=== PATIENT | female | born 1990 | race Caucasian/White ===

== ENCOUNTER 2019-06-13 09:40 | Emergency (ER) | payer BC, SELFPAY ==
[2019-06-13 09:43] VITALS: BP 133/74; PULSE 75; RESP 14; TEMP 36.5; O2SAT 100
--- NOTE | 2019-06-13 10:43 | ED.GENADUL_ITS ---
Discharge Plan Disposition Patient Disposition: HOME Condition: Stable Discharge Details Chief Complaint: Laceration Clinical Impression: Laceration of thumb Primary Care Provider: Terry Matos ED Provider: Lilian Vásquez Home Meds and New Rx's Prescriptions: No Action fluticasone propionate [Flonase Allergy Relief] 9.9 ML spray,suspension 9.9 ml NS RF: 0 ibuprofen 800 MG tablet 800 mg PO Q8H PRN (Reason: Abdominal Pain) 7 Days Qty: 30 RF: 0 venlafaxine [Effexor XR] 75 mg Capsule,Extended Release 24hr 75 mg PO DAILY RF: 0 loratadine 10 mg Tablet 10 mg PO DAILY RF: 0 Discharge Instructions Instructions: Laceration (ED) Additional Instructions: Keep initial dressing in place for the next 24 hours. Then remove and begin to wash gently with soap and water once or twice daily. Apply small amount of antibiotic ointment and dressing to keep covered. Observe for any signs of infection. Suture removal in 10 days. Your fingers will feel slightly numb in the area for approximately 1 to 2 hours this will return to normal then he may experience mild burning. You may use Tylenol for soreness if needed. Return to the emergency room for any signs of infection, worsening, concerns or alarming symptoms sooner if needed Medical Decision Making 29-year-old patient presenting to the emergency room for complaints of laceration to the right thumb fat pad. Injury occurred prior to arrival. Patient sustained laceration while she was trying to separate 2 pieces of glass. Patient reports that she has no concern of retained foreign body. Patient denies any other injuries. Tetanus up-to-date in 2013. On exam patient has a V-shaped flap-like laceration approximately 1.5 cm on the right fat pad. No limitation to range of motion. Nothing to indicate ligamentous or deep space involvement. No bony pain. Distal neurovascularly intact. Bleeding controlled. After area cleaned, lidocaine locally, wound irrigated and explored. No evidence of retained glass. Three 4-0 sutures placed for wound approximation. Patient did have a vasovagal response during her procedure however she never lost consciousness, remained in the bed and speaking throughout, experienced mild nausea which was extremely transient and improved. Patient otherwise tolerated procedure without difficulty. Wound management discussed. Wound care discussed. Suture removal discussed. Signs of infection discussed. The patient was stable and requested discharge. Prior to discharge, my usual and customary return precautions were reviewed with the patient - this included follow-up instructions and reasons to return to the Emergency Department if conditions worsens, does not improve as expected, or other new concerns arise. HPI General Date/Time Provider Initiated Documentation: 06/13/19 09:50 . HPI Narrative: This is a 29-year-old patient who lacerated her right thumb on a piece of glass prior to arrival. Patient denies numbness, tingling or weakness. No concern of foreign body sensation or concern of retained foreign body. Patient was trying to separate 2 pieces of glass and accidentally lacerated her right thumb fat pad. Patient denies any other sites of pain or concerns. Tetanus is up-to-date in 2013. Patient denies any pain with range of motion. No concern for fracture. No other concerns or complaints at this time. Injury occurred prior to arrival. Related Data Home Medications Medication Instructions Recorded Confirmed fluticasone propionate [Flonase 9.9 ml NS 04/23/16 06/30/18 Allergy Relief] ibuprofen 800 mg PO Q8H PRN 7 Days #30 tab 11/30/16 06/13/19 loratadine 10 mg PO DAILY 06/13/19 06/13/19 venlafaxine [Effexor XR] 75 mg PO DAILY 06/13/19 06/13/19 Previous Rx's Medication Instructions Recorded ibuprofen 800 mg PO Q8H PRN 7 Days #30 tab 11/30/16 Allergies Allergy/AdvReac Type Severity Reaction Status Date / Time amoxicillin Allergy Severe Hives Unverified 06/13/19 09:56 General Stated Complaint: Laceration FOZIA: 4 Review of Systems All systems reviewed & are unremarkable except as noted in HPI and below Musculoskeletal Musculoskeletal: Denies deformity, Denies arthralgias, Denies joint swelling, Denies limited range of motion, Denies numbness and Denies tingling Integumentary/Breasts Skin/Breast: Reports wounds Neurologic Neurologic: Denies numbness, Denies tingling and Denies paresthesias [facility] Medical History Chronic low back pain Depression with anxiety Irritable colon Migraines Recurrent HSV (herpes simplex virus) Surgical History (Updated 12/02/17 @ 14:37 by [employer] [place]) section (11/27/16) wisdsom teeth extractions Family History Mother No problems noted. Father No problems noted. Sister No problems noted. Brother Diabetes Type II on meds, Is Obese Son No problems noted. 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 Children: Brien, 2 years old, Hadley, 1year-old, Florencia 8 years old-stepdaughter Female Reproductive History Menstrual control method: permanent sterilization (vasectomy) History History 2 Para Hx # Term Pregnancies 2 Multiple births Hx # Pregnancies Ectopic pregnancies AB induced Hx Number of Living Children AB spontaneous Exam Narrative Exam Narrative: CONST: Healthy appearing patient, in no acute distress. Well hydrated. Alert and oriented. MUSCULOSKELETAL: Normal Gait. Full range of motion of left thumb. Flexion extension intact. Nothing to indicate ligamentous or tendon injury. No bony pain with palpation. No palpable tenderness. A small V-shaped laceration approximately 1.5 cm noted over the right fat pad. No joint involvement. Distal neurovascularly intact. SKIN: Normal. Dry. No rashes. A small V-shaped laceration approximately 1.5 cm noted over the right fat pad. No joint involvement. NEURO: Alert and awake. Speech clear. PSYCH: Normal affect. Cooperative. Course Vital Signs Vital signs: Vital Signs Temperature 36.5 C 06/13/19 09:43 Pulse 75 06/13/19 09:43 Respiratory Rate 14 06/13/19 09:43 Blood Pressure 133/74 06/13/19 09:43 Pulse Oximetry 100 06/13/19 09:43 Temperature 36.5 C 06/13/19 09:43 Temperature Source Skin 06/13/19 09:43 Pulse 75 06/13/19 09:43 Respiratory Rate 14 06/13/19 09:43 Respiratory Effort Non-Labored 06/13/19 09:58 Blood Pressure 133/74 06/13/19 09:43 Blood Pressure Position Sitting 06/13/19 09:43 Pulse Oximetry 100 06/13/19 09:43 Oxygen Delivery Method Room Air 06/13/19 09:43 Oxygen Flow Rate 0 06/13/19 09:43 Pain Level 0 06/13/19 10:01 Procedures Laceration Laceration 1: Site: hand (Right thumb) Side (If applicable): right Size (cm): 1.5 Description: flap Depth: simple, single layer Local Anesthetic: Lidocaine 1% Amount of anesthesia used (mL): 1 Pre-repair: wound explored Skin layer closed with: other (prolene) Size (cm): 4-0 Number of sutures: 3 Technique: simple, interrupted
[2019-06-13 11:14] VITALS: BP 123/80; PULSE 72; RESP 17; TEMP 36.9; O2SAT 99
== END 2019-06-13 11:02 | disposition home or self-care (01) ==
PROVIDERS: Emergency Provider Physician Assistant; PCP Family Medicine
DX: S61.011A Laceration without foreign body of right thumb without damage to nail, initial encounter (principal); W25.XXXA Contact with sharp glass, initial encounter
CPT/HCPCS: 12001

== ENCOUNTER 2019-10-28 13:42 | Outpatient (REF) | payer BC, SELFPAY ==
--- NOTE | 2019-10-28 12:00 | PAPFT_PTH ---
PATIENT: Yoana Castellanos LOC: [facility]#:[id number] AGE/SX: 29/F ROOM: RE10/28/[address]: Terry Matos : 1990 BED: DIS: 10/28/2019 SPEC #: [id number] RECD: 10/31/19 12:53 STATUS: DIANA REQ #: [id number] GISEL: 10/28/19 12:[address]: Terry Matos DEPT: [facility] Cytology RECD BY: Alexia Evans Tissues: 1 - CX/ENDOCX FOR PAP SMEARS Procedures: PAP THIN PREP/UVM Screening Comments: [id number]
== END 2019-10-28 14:02 ==
LOC: NCHCN 13:42
PROVIDERS: PCP Family Medicine; Visit Provider Family Medicine
DX: Z12.4 Encounter for screening for malignant neoplasm of cervix (principal)
CPT/HCPCS: 88142

== ENCOUNTER 2021-06-14 01:47 | Outpatient (CLI) | payer BC, SELFPAY ==
[2021-06-14 13:03] LABS: CREATININE 0.8 mg/dL (0.55-1.02); Potassium 4.4 mmol/L (3.5-5.1)
== END 2021-06-14 01:48 | disposition home or self-care (01) ==
LOC: LBO 01:47
PROVIDERS: PCP Family Medicine; Visit Provider Physician Assistant
DX: L73.2 Hidradenitis suppurativa (principal)
CPT/HCPCS: 36415; 82565; 84132

== ENCOUNTER 2021-08-27 02:46 | Outpatient (CLI) | payer BC, SELFPAY ==
[2021-09-02 08:28] LABS: CLASS 0; Venom Bumble Bee IgE <0.10 kU/L (<0.35)
[2021-09-04 11:32] LABS: Misc Referral (MAYO) See Comments
== END 2021-08-27 02:47 | disposition home or self-care (01) ==
PROVIDERS: PCP Family Medicine; Visit Provider Physician Assistant
DX: T63.461A Toxic effect of venom of wasps, accidental (unintentional), initial encounter (principal); R06.2 Wheezing; R21 Rash and other nonspecific skin eruption
CPT/HCPCS: 36415; 86003

== ENCOUNTER 2021-11-12 03:18 | Outpatient (CLI) | payer BC, SELFPAY ==
[2021-11-14 17:47] LABS: Testosterone, Total 18 ng/dL (8-60)
== END 2021-11-12 03:19 | disposition home or self-care (01) ==
LOC: LBO 03:18
PROVIDERS: PCP Family Medicine; Visit Provider Nurse Practitioner Women's Health
DX: N92.6 Irregular menstruation, unspecified (principal)
CPT/HCPCS: 36415; 84403; 83001; 84443

== ENCOUNTER 2022-07-11 01:48 | Outpatient (CLI) | payer BC, SELFPAY ==
--- OUTSIDE RECORDS SUMMARY | 2022-07-11 01:51 | XMS_ITS | Continuity of Care Document ---
Author Name Unknown Organization [facility] Address [address] [place] [address] Encounter [facility]_[place] Date(s): 11/20/21 - 11/20/[address] [address] Discharge Disposition: Home or Self Care Attending Physician: Spring Godoy Admitting Physician: Spring Godoy Assessment and Plan Diagnostic Tests Pending * Urine Culture 11/20/21 Social History Social History Type Response Sex Female
[2022-07-11 13:33] LABS: CREATININE 0.8 mg/dL (0.55-1.02); Estimated GFR 100.33 (mL/min/1.73m2); Potassium 3.9 mmol/L (3.5-5.1)
== END 2022-07-11 01:49 | disposition home or self-care (01) ==
PROVIDERS: PCP Family Medicine; Visit Provider Physician Assistant
DX: L70.8 Other acne (principal); Z79.899 Other long term (current) drug therapy
CPT/HCPCS: 36415; 82565; 84132

== ENCOUNTER 2022-12-19 01:48 | Outpatient (CLI) | payer BC, SELFPAY ==
[2022-12-19 08:23] LABS: Abs Immature Grans 0.02 10^3/uL (0.0-0.06); Absolute Basophil Count 0.06 10^3/uL (0.0-0.2); Absolute Eosinophil Count 0.12 10^3/uL (0.0-0.7); Absolute Lymphocyte Count 3.32 10^3/uL (1.2-3.4); Absolute Monocyte Count 0.63 10^3/uL (0.1-0.8); Absolute Neutrophil Count 5.68 10^3/uL (1.2-6.7); Basophils % 0.6; Eosinophils % 1.2; HCT 43.4 % (36.0-46.0); HGB 14.7 g/dL (11.2-15.7); Immature Grans % 0.2; Lymphocytes % 33.8; MCH 30.7 pg (27.0-33.0); MCHC 33.9 % (32.0-36.0); MCV 91 fL (80-95); MPV 9.3 fL (8.0-11.0); Monocytes % 6.4; Neutrophils % 57.8; Platelet Count 286 10^3/uL (130-400); RBC 4.79 10^6/uL (3.93-5.22); RDW 11.7 % (11.7-14.6); RDW-SD 39.3 fL; WBC 9.83 10^3/uL (4.4-10.8)
[2022-12-19 08:45] LABS: ALT 27 U/L (14-59); AST 19 U/L (15-37); Albumin 4.2 g/dL (3.4-5.0); Alkaline Phosphatase 75 U/L (46-116); Anion Gap 12.6 mmol/L (3-11); BUN 12 mg/dL (7-18); Bilirubin, Total 0.5 mg/dL (0.2-1.0); CO2 23.4 mmol/L (21.0-32.0); CREATININE 0.9 mg/dL (0.55-1.02); Calcium 9.4 mg/dL (8.5-10.1); Calculated LDL 149 mg/dL (<100); Chloride 104 mmol/L (98-107); Cholesterol 219 mg/dL (<200); Estimated GFR 87.11 (mL/min/1.73m2); Glucose 109 mg/dL (74-106); HDL Cholesterol 55 mg/dL (40-60); Potassium 3.7 mmol/L (3.5-5.1); Sodium 140 mmol/L (136-145); Total Protein 8.3 g/dL (6.4-8.2); Triglyceride 75 mg/dL (<150)
[2022-12-22 12:29] LABS: IgA 178 mg/dL (85-499); Interpretation (See Note); Tissue Transglutaminase IgA <1.2 U/mL (<4.0)
== END 2022-12-19 01:49 | disposition home or self-care (01) ==
PROVIDERS: PCP Family Medicine; Visit Provider Family Medicine
DX: R11.2 Nausea with vomiting, unspecified (principal); R19.7 Diarrhea, unspecified; Z00.00 Encounter for general adult medical examination without abnormal findings
CPT/HCPCS: 36415; 80053; 80061; 82533; 82784; 83516; 85025

== ENCOUNTER 2023-05-29 09:08 | Outpatient (REF) | payer OTHER, SELFPAY ==
--- NOTE | 2023-05-29 08:45 | PAPFT_PTH ---
PATIENT: Yoana Castellanos LOC: [facility] U#:[id number] AGE/SX: 33/F ROOM: RE05/29/[address]: Loren Stephenson DO : 1990 BED: DIS: 05/29/2023 SPEC #: [id number] RECD: 05/29/23 12:55 STATUS: DIANA REQ #: [id number] GISEL: 05/29/23 08:[address]: Loren Stephenson DEPT: [facility] Cytology RECD BY: Alexia Evans ENTERED: 05/29/23 12:55 SP TYPE: PAPFT OTHR DR: Terry Matos Tissues: 1 - CX/ENDOCX FOR PAP SMEARS Procedures: PAP THIN PREP/UVM Screening HPV DNA PROBE Comments: [id number]
== END 2023-05-29 09:09 | disposition home or self-care (01) ==
LOC: LBN 09:08
PROVIDERS: PCP Family Medicine; Visit Provider Obstetrics & Gynecology
DX: Z12.4 Encounter for screening for malignant neoplasm of cervix (principal); Z11.51 Encounter for screening for human papillomavirus (HPV)
CPT/HCPCS: 88142; 87624

== ENCOUNTER 2023-07-14 17:00 | Outpatient (REF) | payer OTHER, SELFPAY ==
[2023-07-14 16:39] LABS: ALT 32 U/L (14-59); AST 20 U/L (15-37); Albumin 4.5 g/dL (3.4-5.0); Alkaline Phosphatase 83 U/L (46-116); Anion Gap 7.3 mmol/L (3-11); BUN 10 mg/dL (7-18); Bilirubin, Total 0.4 mg/dL (0.2-1.0); CO2 28.7 mmol/L (21.0-32.0); CREATININE 0.8 mg/dL (0.55-1.02); Calcium 9.6 mg/dL (8.5-10.1); Chloride 102 mmol/L (98-107); Estimated GFR 99.71 (mL/min/1.73m2); Glucose 97 mg/dL (74-106); Potassium 3.8 mmol/L (3.5-5.1); Sodium 138 mmol/L (136-145); TSH 1.21 uIU/Ml (0.36-3.74); Total Protein 8.2 g/dL (6.4-8.2)
== END 2023-07-14 17:01 | disposition home or self-care (01) ==
LOC: NCHCN 17:00
PROVIDERS: PCP Family Medicine; Visit Provider Nurse Practitioner Psychiatric/Mental Health
DX: F39 Unspecified mood [affective] disorder (principal)
CPT/HCPCS: 80053; 84443

== ENCOUNTER 2024-06-24 09:38 | Outpatient (REF) | payer OTHER, SELFPAY ==
[2024-06-24 16:37] LABS: Anion Gap 8.9 mmol/L (3-11); BUN 15 mg/dL (7-18); CO2 26.1 mmol/L (21.0-32.0); CREATININE 0.8 mg/dL (0.55-1.02); Calcium 9.9 mg/dL (8.5-10.1); Chloride 102 mmol/L (98-107); Estimated GFR 99.09 (mL/min/1.73m2); Glucose 101 mg/dL (74-106); Potassium 4.4 mmol/L (3.5-5.1); Sodium 137 mmol/L (136-145)
== END 2024-06-24 09:39 | disposition home or self-care (01) ==
LOC: NCHCN 09:38
PROVIDERS: PCP Family Medicine; Visit Provider Student in an Organized Health Care Education/Training Program
DX: L73.2 Hidradenitis suppurativa (principal)
CPT/HCPCS: 80048

== ENCOUNTER 2025-01-14 13:02 | Emergency (ER) | payer OTHER, SELFPAY ==
[2025-01-14 13:09] VITALS: BP 158/112; PULSE 90; RESP 16; TEMP 36.9; O2SAT 100
--- NOTE | 2025-01-14 13:15 | DI.CT_ITS ---
Exam(s) CT HEAD WO EXAM: CT HEAD WO CLINICAL HISTORY: Headache. TECHNIQUE: Imaging Protocol: Axial computed tomography images with coronal and sagittal reformatted images were created and reviewed COMPARISON: No exams were available for comparison FINDINGS: Ventricles and Extra axial spaces: Normal in size and morphology for the patient's age. Hemorrhage: None. Cerebral parenchyma: Normal. Midline shift: None. Brainstem/Cerebellum: Normal. Calvarium: Normal. Visualized Paranasal sinuses/Mastoids: There is marked mucosal thickening of the sphenoid sinuses bilaterally. Soft Tissues: Unremarkable. IMPRESSION: 1. No acute intracranial process. 2. Bilateral sphenoid sinusitis. 3. The preliminary [facility] report was reviewed. RADIATION DOSE DELIVERED: 792.86mGy.cm Total DLP DATA REPOSITORY: All CT scans at this facility are submitted to the National Radiology Data Registry (NRDR) Dose Index Registry (DIR) with the [employer] (ACR). RADIATION OPTIMIZATION: All CT scans at this facility use at least one of these dose optimization techniques: automated exposure control; mA and/or kV adjustment per patient size (includes targeted exams where dose is matched to clinical indication); or iterative reconstruction.
--- NOTE | 2025-01-14 13:26 | ED.GENADUL_ITS ---
Discharge Plan Disposition Patient Disposition: Home Condition: Stable Discharge Details Clinical Impression: Sinusitis, Headache Primary Care Provider: Terry Matos ED Provider: Di Moreira Home Meds and New Rx's Prescriptions: New doxycycline hyclate 100 mg tablet 100 mg PO BID 10 Days Qty: 20 0RF Rx Instructions: Please take 1 tablet by mouth twice daily for the next 10 days fluticasone propionate 50 mcg/actuation spray,suspension 2 spray intranasal DAILY 7 Days Qty: 16 0RF Rx Instructions: administer into each nostril once daily ondansetron 4 mg tablet,disintegrating 4 mg PO Q8H PRN (Reason: nausea and vomiting) 4 Days Qty: 9 0RF Rx Instructions: Take 1 tablet up to 3 times daily as needed for nausea and vomiting 20 minutes prior to meals. No Action spironolactone 100 mg tablet 150 mg PO DAILY venlafaxine 150 mg capsule,extended release 24hr 150 mg PO DAILY fluticasone propionate [Flonase Allergy Relief] 9.9 ML spray,suspension 9.9 ml NS DAILY ibuprofen 800 MG tablet 800 mg PO Q8H PRN (Reason: Abdominal Pain) 7 Days Qty: 30 0RF Rx Instructions: 1 tab po q8 hours prn pain loratadine 10 mg Tablet 10 mg PO DAILY venlafaxine 37.5 mg capsule,extended release 24hr 37.5 mg PO DAILY Patient Comments: TAKE ONE CAPSULE BY MOUTH EVERY DAY WITH 1 CAPSULE OF THE 150MG Discharge Instructions Instructions: Headache, Adult ED, Sinusitis, Adult ED Additional Instructions: At this time the CT of your brain is within normal limits, however you do have some sinusitis noted which could attribute to some of your symptoms. I am going to place you on an antibiotic which you will take twice daily for the next 10 days. Please take it with yogurt or a probiotic. Please also take Flonase or similar nasal spray as directed 1 or 2 sprays once daily for the next 7 days. Please take Tylenol or Ibuprofen with food every 4-6 hours as needed for pain and swelling. Increase oral fluids. Please take the nausea medication as needed. Follow up with primary care provider in 3-5 days. Return to ED sooner if any worsening or concerns. Stand Alone Forms: Portal Information Referrals: Terry Matos [Primary Care Provider, Medicine] - 1 week Clinical Impression: Sinusitis Discharge Data Discharge Date/Time-TO BE ENTERED AT DEPARTURE: 01/14/25 15:27 HPI General Mode of arrival: ambulatory . Date/Time Provider Initiated Documentation: 01/14/25 13:05 . Limitations to Documentation: no limitations . Information obtained by: patient, RN notes reviewed and old records reviewed . HPI Narrative: 34-year-old female presents to the ER with a chief complaint of frontal headache since Thursday, she reports chills and some nausea vomiting associated with this. She is sensitive to light and sound, she does not have a significant headache history of migraine headaches she had 1 headache during . She was seen in urgent care and referred here for further evaluation and management. She did not take any medications today. Previous to today she has been taking Tylenol ibuprofen and naproxen. No significant head injuries reported. She is slightly hypertensive upon arrival. No focal neurodeficits. She does not appear meningeal, Related Data Home Medications ?Medication ?Instructions ?Recorded ?Confirmed fluticasone propionate 50 9.9 ml NS DAILY 04/23/16 mcg/actuation nasal spray,suspension (Flonase Allergy Relief) ibuprofen 800 mg tablet 800 mg PO Q8H PRN Abdominal Pain 7 11/30/16 01/14/25 days #30 tabs loratadine 10 mg tablet 10 mg PO DAILY 06/13/1912/18 spironolactone 100 mg tablet 150 mg PO DAILY 06/06/24 01/14/25 venlafaxine 150 mg 150 mg PO DAILY 06/06/24 capsule,extended release 24 hr doxycycline hyclate 100 mg tablet 100 mg PO BID Sinusi tis 10 days 01/14/25 #20 tabs fluticasone propionate 50 2 spray intranasal DAILY umesh al 01/14/25 mcg/actuation nasal congestion 7 days #16 grams spray,suspension ondansetron 4 mg disintegrating 4 mg PO Q8H PRN nausea and 01/14/25 tablet vomiting 4 days #9 tabs venlafaxine 37.5 mg 37.5 mg PO DAILY 01/14/25 capsule,extended release 24 hr Previous Rx's ?Medication ?Instructions ?Recorded ibuprofen 800 mg tablet 800 mg PO Q8H PRN Abdominal Pain 7 11/30/16 days #30 tabs doxycycline hyclate 100 mg tablet 100 mg PO BID Sinusi tis 10 days 01/14/25 #20 tabs fluticasone propionate 50 2 spray intranasal DAILY umesh al 01/14/25 mcg/actuation nasal congestion 7 days #16 grams spray,suspension ondansetron 4 mg disintegrating 4 mg PO Q8H PRN nausea and 01/14/25 tablet vomiting 4 days #9 tabs Allergies Allergy/AdvReac Type Severity Reaction Status Date / Time amoxicillin Allergy Severe Hives Verified 01/14/25 13:12 General Stated Complaint: Headache FOZIA: 3 Review of Systems All systems reviewed & are unremarkable except as noted in HPI and below Constitutional Constitutional: Reports as per HPI and Reports headache(s) ENT Ears, Nose, Mouth, and Throat: Reports headache(s) Gastrointestinal Gastrointestinal: Reports nausea and Reports vomiting Neurologic Neurologic: Reports headache(s) Exam Narrative Exam Narrative: Constitutional: Alert and oriented x3. Appears stated age. Normal body habitus. Head: Normocephalic, no trauma. Eyes: Pupils PERRL, Red reflex noted, EOM's intact. Eyelids symmetrical without lesions, discharge, or swelling. ENT: Bilateral TM's WNL, External ear normal to inspection, no mastoid TTP, swelling, or erythema, Nasal turbinates WNL, no nasal discharge. Normal dentition, Posterior pharynx WNL, no exudate. Chest: RRR, Normal S1, S2, distal pulses intact. Resp: Lungs clear to auscultation bilaterally, no wheezes, rales, or rhonchi. Abdomen: Soft, non-distended, Normoactive bowel sounds all 4 quads. Musculoskeletal: Normal gait, Moves all 4 extremities without difficulty. Skin: No suspicious rashes or lesions. Capillary refill less than 2 sec. Neurologic: Cranial nerves II-XII intact. Alert and oriented x 3. Motor: No deficits noted. Sensory: Intact bilaterally all 4 extremities. Hematologic/Lymphatic: No ecchymosis, no lymphadenopathy. Course Vital Signs Vital signs: Vital Signs Temperature 36.9 C 01/14/25 13:09 Pulse 90 01/14/25 13:09 Respiratory Rate 16 01/14/25 13:09 Blood Pressure 158/112 H 01/14/25 13:09 Pulse Oximetry 100 01/14/25 13:09 Temperature 36.9 C 01/14/25 13:09 Temperature Source Oral 01/14/25 13:09 Pulse 90 01/14/25 13:09 Respiratory Rate 16 01/14/25 13:09 Blood Pressure 158/112 H 01/14/25 13:09 Blood Pressure Position Sitting 01/14/25 13:09 Pulse Oximetry 100 01/14/25 13:09 Oxygen Delivery Method Room Air 01/14/25 13:09 Oxygen Flow Rate 0 01/14/25 13:09 Medical Decision Making 34-year-old female presents to the ER with a chief complaint of frontal headache since Thursday, she reports chills and some nausea vomiting associated with this. She is sensitive to light and sound, she does not have a significant headache history of migraine headaches she had 1 headache during . She was seen in urgent care and referred here for further evaluation and management. She did not take any medications today. Previous to today she has been taking Tylenol ibuprofen and naproxen. No significant head injuries reported. She is slightly hypertensive upon arrival. No focal neurodeficits. Will draw some labs, urine urinalysis, head CT IV normal saline Zofran Benadryl and Compazine. 1450: On patient reevaluation she reports feeling slightly better, 15 mg Toradol IV ordered. CT shows no acute intracranial abnormalities she does however have some sinusitis which could be attributing to her symptoms. Patient given doxycycline for the sinusitis instructed to use Flonase. Instructed to increase oral fluids at home. Patient discharged with follow-up with her PCP. This text was generated using [employer] dictation system, please disregard any oddities of phrase or misspellings. Imaging Data Radiologic Study: Imaging: CT Scan Radiologist's impression: FINDINGS: Brain: No hemorrhage. Unremarkable white matter. No mass effect. Cerebral ventricles: No ventriculomegaly. Paranasal sinuses: Bilateral dnsez-lmrbcge-yjic-left sphenoid sinus mucosal thickening. No fluid levels. Mastoid air cells: Visualized mastoid air cells are well aerated. Bones: Unr emarkable. No acute fracture. Soft tissues: Unremarkable. IMPRESSION: 1. No acute intracranial findings. 2. Bilateral sphenoid sinus disease. Thank you for allowing us to participate in the care of your patient. Dictated and Authenticated by: Franck Lemus MD Lab Data Lab results reviewed: Yes I reviewed the patient's lab results. Lab results narrative: Laboratory Tests Range/Units 01/14/25 01/14/25 01/14/25 13:30 13:45 14:10 WBC (4.4-10.8) 10^3/uL 12.20 H RBC (3.93-5.22) 10^6/uL 4.95 Hgb (11.2-15.7) g/dL 15.7 Hct (36.0-46.0) % 46.0 MCV (80-95) fL 93 MCH (27.0-33.0) pg 31.7 MCHC (32.0-36.0) % 34.1 RDW (11.7-14.6) % 12.5 Plt Count (130-400) 10^3/uL 291 MPV (8.0-11.0) fL 9.8 Immature Gran % % 0.2 Neutrophils % % 57.2 Lymphocytes % % 35.2 Monocytes % % 6.7 Eosinophils % % 0.0 Basophils % % 0.7 Nucleated RBC % (0.0-0.3) % 0.0 Absolute Neutrophils (1.2-6.7) 10^3/uL 6.98 H Absolute Lymphocytes (1.2-3.4) 10^3/uL 4.29 H Absolute Monocytes (0.1-0.8) 10^3/uL 0.82 H Absolute Eosinophils (0.0-0.7) 10^3/uL 0.00 Absolute Basophils (0.0-0.2) 10^3/uL 0.09 Sodium Cancelled 143 Potassium Cancelled 3.6 Chloride Cancelled 113 H Carbon Dioxide Cancelled 22.4 Anion Gap Cancelled 7.6 BUN Cancelled 14 Creatinine Cancelled 0.73 Est GFR (CKD-EPI 2020) Cancelled 90.91 Glucose Cancelled 99 Calcium Cancelled 8.4 Total Bilirubin Cancelled 0.50 AST Cancelled 26 ALT Cancelled 25 Alkaline Phosphatase Cancelled 53 Total Protein Cancelled 7.3 Albumin Cancelled 4.1 Urine Color (Yellow) Yellow Urine Clarity (Clear) Clear Urine pH (5-8) 5.5 Ur Specific [place] (1.005-1.025) >= 1.030 H Urine Protein (Neg-Trace) mg/dL 30 H Urine Ketones (Negative) mg/dL Negative Urine Blood (Negative) Moderate H Urine Nitrite (Negative) Negative Urine Bilirubin (Negative) Small H Urine Urobilinogen (Up to 0.2) mg/dL 0.2 Ur Leukocyte Esterase (Negative) Negative Urine RBC (0-2) HPF 5-10 H Urine WBC (0-5) HPF 0-2 Ur Epithelial Cells (Negative) HPF Moderate Urine Crystals (Negative) HPF Negative Urine Bacteria (Negative) HPF Few Urine Casts (Negative) LPF 0-2 Hyaline Urine Mucus (Negative) Moderate Ur Culture Indicated? No Urine Glucose (Negative) mg/dL Negative PFSH All Active Problems (Updated 01/14/25 @ 15:11 by Di Moreira NP) Headache (Acute) Sinusitis (Acute) Routine gynecological examination (Acute) Environmental allergies (Acute) ASCUS (atypical squamous cells of undetermined significance) on Pap smear (Chronic) Inguinal nodule (Acute ~06/2018) 1 x 1.5 cm-expectant management recommended Medical History Allergic reaction to wasp sting Irritable colon Migraines Chronic low back pain Recurrent HSV (herpes simplex virus) Depression with anxiety Surgical History wisdsom teeth extractions section (11/27/16) Family History Mother No problems noted. Father No problems noted. Sister No problems noted. Brother Diabetes Type II on meds, Is Obese Son No problems noted. 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 Children: Brien, 2 years old, Hadley, 1year-old, Florencia 8 years old-stepdaughter Female Reproductive History Menstrual control method: permanent sterilization (vasectomy) History History 2 Para Hx # Term Pregnancies 2 Multiple births Hx # Pregnancies Ectopic pregnancies AB induced Hx Number of Living Children AB spontaneous
[2025-01-14] MEDS: Ondansetron 4 MG/2 ML VIAL IVP (13:44)
[2025-01-14 13:45] LABS: Glucose Negative (Negative)
[2025-01-14] MEDS: diphenhydrAMINE 50 MG/ML VIAL 25 MG IVP (13:45)
[2025-01-14] MEDS: Prochlorperazine 10 MG/2 ML VIAL 5 MG IVP (13:45)
[2025-01-14] MEDS: Normal Saline 1,000 ML 1000 ML IV (13:50)
[2025-01-14 13:55] LABS: C & S Indicated? No; WBC 0-2 HPF (0-5)
[2025-01-14 13:58] LABS: Abs Immature Grans 0.03 10^3/uL (0.0-0.06); HCT 46.0 % (36.0-46.0); HGB 15.7 g/dL (11.2-15.7); Immature Grans % 0.2 %; MCH 31.7 pg (27.0-33.0); MCHC 34.1 % (32.0-36.0); MCV 93 fL (80-95); MPV 9.8 fL (8.0-11.0); Platelet Count 291 10^3/uL (130-400); RBC 4.95 10^6/uL (3.93-5.22); RDW 12.5 % (11.7-14.6); RDW-SD 42.7 fL; WBC 12.20 10^3/uL (4.4-10.8)
[2025-01-14 14:38] LABS: ALT 25 U/L (10-49); AST 26 U/L (<34); Albumin 4.1 g/dL (3.2-5.0); Alkaline Phosphatase 53 U/L (46-116); Anion Gap 7.6 mmol/L (3-11); BUN 14 mg/dL (9-23); Bilirubin, Total 0.50 mg/dL (0.2-1.2); CO2 22.4 mmol/L (20.0-31.0); Calcium 8.4 mg/dL (8.3-10.6); Chloride 113 mmol/L (98-107); Glucose 99 mg/dL (74-106); Potassium 3.6 mmol/L (3.5-5.1); Sodium 143 mmol/L (136-145); Total Protein 7.3 g/dL (5.7-8.2)
--- NOTE | 2025-01-14 14:48 | DI.VRAD_ITS ---
PROCEDURE INFORMATION: Exam: CT Head Without Contrast Exam date and time: 01/14/2025 2:30 PM Age: 34 years old Clinical indication: Other: Headache TECHNIQUE: Imaging protocol: Computed tomography of the head without contrast. COMPARISON: No relevant prior studies available. FINDINGS: Brain: No hemorrhage. Unremarkable white matter. No mass effect. Cerebral ventricles: No ventriculomegaly. Paranasal sinuses: Bilateral ujckd-mxzbegm-xilc-left sphenoid sinus mucosal thickening. No fluid levels. Mastoid air cells: Visualized mastoid air cells are well aerated. Bones: Unremarkable. No acute fracture. Soft tissues: Unremarkable. IMPRESSION: 1. No acute intracranial findings. 2. Bilateral sphenoid sinus disease. Dictated and Authenticated by: Franck Lemus MD. Orderin Lillie Sevilla MD
[2025-01-14 14:56] VITALS: BP 122/93; PULSE 103; RESP 16; O2SAT 99
[2025-01-14] MEDS: Doxycycline Hyclate 100 MG, 2 CAPS/BTL PO (15:22)
[2025-01-14] MEDS: Doxycycline Hyclate 100 MG CAP PO (15:22)
== END 2025-01-14 15:27 | disposition home or self-care (01) ==
PROVIDERS: Emergency Provider Registered Nurse Emergency; PCP Family Medicine
DX: R51.9 Headache, unspecified (principal); J32.9 Chronic sinusitis, unspecified
CPT/HCPCS: 36415; 80053; 81025; 96361; 96374; 96375; 99284; 70450; 81003; 81015; 85025; J0780; J1200; J2405